=== PATIENT | male | born 2000 | race African-American/Black ===

== ENCOUNTER 2022-02-09 23:45 | Emergency (ER) | payer SELFPAY ==
[~2022-02-09] VITALS: Ht 170.2 cm; Wt 81.6 kg
--- NOTE | 2022-02-10 00:01 | NUR ---
BIBFRIENDS, C/O L KNEE PAIN S/P DANCING "FELT A POP". PT A/OX4. TOLERATING R/A WELL WITH NO RESP DISTRESS. SAFETY MEASURES IN PLACE.
--- NOTE | 2022-02-10 00:15 | NUR ---
DR. RICKEY BOLTON AT PT'S BEDSIDE
[2022-02-10] MEDS ORDERED: HYDROCODONE/APAP 5/325MG TABLET PO ONE (00:30)
[2022-02-10] MEDS ORDERED: HYDROCODONE/APAP 5/325MG TABLET ONE (00:32)
--- NOTE | 2022-02-10 00:50 | NUR ---
LOAN SECRETARY AT PT'S BEDSIDE
[2022-02-10] MEDS ORDERED: IBUP-1957 PO (02:34)
--- NOTE | 2022-02-10 02:35 | NUR ---
EMT AT PT'S BEDSIDE TO APPLY LEFT KNEE IMOBILIZER
--- NOTE | 2022-02-10 02:49 | NUR ---
Patient discharged to home in stable condition. RX Written and verbal after care instructions given. Patient verbalizes understanding of instruction. PT ambulatory with a steady gait with crutches
[2022-02-10 02:50] VITALS: BP 125/91
== END 2022-02-10 02:50 | disposition home or self-care (01) ==
LOC: ER 23:48
DX: S89.92XA Unspecified injury of left lower leg, initial encounter (principal); Z60.2 Problems related to living alone; X50.1XXA Overexertion from prolonged static or awkward postures, initial encounter; Y93.41 Activity, dancing; Y92.252 Music hall as the place of occurrence of the external cause; Y99.8 Other external cause status
CPT/HCPCS: 73564-TC